=== PATIENT | female | born 1945 | race Caucasian/White ===

== ENCOUNTER → 2016-03-24 | Outpatient (CLI) | payer OTHER ==
--- NOTE | 2016-03-24 12:53 | US ---
Right Breast Ultrasound History: Evaluate palpable asymmetry in the upper outer right breast at the 2 o'clock position 5 cm f rom the nipple. The abnormality was detected by the patient's healthcare provider. Technique: Longitudinal and transverse images were obtained utilizing a 15 MHz transducer. Comparison is made to the most recent digital tomosynthesis screening study December 06, 2015. Findings: A subtle palpable asymmetry is identified on my physical examination. Sonographic interroga tion of the region demonstrates scattered fibroglandular elements. No solid or cystic mass is seen. Impression: Benign sonographic findings, BI-RADS 2. Recommendation: Resume routine mammographic screening in November 2016 as long as physical examination is negative. Findings and follow up recommendations were reviewed with the patient in detail. [facility] dina will send a result letter to the patient.
== END ==
LOC: FIMAGING 12:18
PROVIDERS: ATTEND Internal Medicine Hematology & Oncology
DX: Z12.39 Encounter for other screening for malignant neoplasm of breast (principal); N63 Unspecified lump in breast; Z85.9 Personal history of malignant neoplasm, unspecified

== ENCOUNTER → 2016-12-12 | Outpatient (CLI) | payer OTHER | LOC: FIMAGING 13:24 | PROVIDERS: ATTEND Internal Medicine | DX: Z12.31 Encounter for screening mammogram for malignant neoplasm of breast (principal); Z80.3 Family history of malignant neoplasm of breast | CPT/HCPCS: G0202 ==

== ENCOUNTER → 2017-01-25 | Outpatient (CLI) | payer OTHER ==
[~2017-01-25] MED LIST: GADOBUTROL 10 ML VIAL IVP ONE; GLUCAGON HCL 0.3 MG in SYRINGE 0.3 ML IVP ONE
== END ==
LOC: FIMAGING 13:50
PROVIDERS: ATTEND Internal Medicine Hematology & Oncology
DX: K59.8 Other specified functional intestinal disorders (principal)
CPT/HCPCS: 72196; 74182; 74183; A9585; J1610

== ENCOUNTER → 2018-01-16 | Outpatient (CLI) | payer OTHER | LOC: FIMAGING 11:16 | PROVIDERS: ATTEND Internal Medicine | DX: Z12.31 Encounter for screening mammogram for malignant neoplasm of breast (principal); Z80.3 Family history of malignant neoplasm of breast ==